=== PATIENT | female | born 1975 | race Hispanic/Latino ===

== ENCOUNTER 2023-12-25 10:59 | Outpatient (CLI) | payer BC | END 2023-12-25 11:00 | disposition home or self-care (01) | LOC: CSHMRI 10:59 | PROVIDERS: ATTEND Family Medicine | DX: M25.561 Pain in right knee (principal); M23.91 Unspecified internal derangement of right knee; M70.51 Other bursitis of knee, right knee ==

== ENCOUNTER 2023-12-26 10:31 | Emergency (ER) | payer BC ==
[2023-12-26] MEDS ORDERED: Ketorolac Tromethamine 30 MG (1 mL) VIAL ONE (11:44)
[2023-12-26] MEDS ORDERED: Ondansetron PF 4 MG/2 ML Vial ONE (11:51)
[2023-12-26 11:53] LABS: #Basophils 0.02 10x3/uL (0.0-0.2); #Eosinphils 0.12 10x3/uL (0.0-0.5); #Monocytes 0.37 10x3/uL (0.0-1.1); #Neutrophils 1.97 10x3/uL (1.5-8.4); %Basophils 0.5 % (0.0-2.0); %Eosinophils 2.7 % (0.0-6.0); %Lymphocytes 43.6 % (18.0-47.0); %Monocytes 8.4 % (0.0-10.0); %Neutrophils 44.8 % (40.0-75.0); Hematocrit 36.4 % (34.9-44.5); Hemoglobin 12.3 g/dL (12.0-15.5); Mean Corpuscular HGB CONC 33.8 g/dL (32.0-36.0); Mean Corpuscular Hemoglobin 27.5 pg (27.0-33.0); Mean Corpuscular Volume 81.3 fl (81.6-98.3); Mean Platelet Volume 10.6 fl (7.4-10.4); Platelet Count 192 10x3/uL (150-450); RBC Distribution Width 12.6 % (11.5-14.5); Red Blood Cell (RBC) Count 4.48 10x6/uL (3.90-5.03); White Blood Cell (WBC) Count 4.4 10x3/uL (3.5-10.5)
[2023-12-26 12:00] LABS: Bilirubin Neg (Negative); Blood, Urine Negative (Negative); Clarity Clear (Clear); Glucose, Urine (Dipstick) Normal (Negative); Ketone, Urine Negative (Negative); Leukocyte Negative (Negative); Nitrite Negative (Negative); Protein, Urine (Dipstick) Negative (Neg-Trace); Urobilinogen Normal mg/dL (Less than 2)
[2023-12-26] MEDS ORDERED: Iopamidol 300 61% 100 ML VIAL FS ONE (12:02)
[2023-12-26 12:09] LABS: ALT (SGPT) 15 U/L (8-55); AST (SGOT) 14 U/L (5-34); Albumin 3.5 g/dL (3.5-5.0); Alkaline Phosphatase 59 U/L (40-110); Anion Gap 12 mmol/L (10-20); BUN (Urea Nitrogen) 4 mg/dL (7.0-18.7); Bilirubin, Total 0.5 mg/dL (0.2-1.2); Calc. Creatinine Clearance 0 mL/min (70-130); Carbon Dioxide 21 mmol/L (22-29); Chloride 108 mmol/L (98-107); Estimated GFR 112; Globulin 3.2 g/dL (2.4-3.5); Glucose 92 mg/dL (70-105); Lipase 15 U/L (8-78); Potassium 3.5 mmol/L (3.5-5.1); Protein, Total 6.7 g/dL (6.0-8.3); Sodium 137 mmol/L (136-145)
[2023-12-26 12:17] LABS: CAUTI Indications for Culture Dysuria,urgency,freq; RBC/HPF None Seen HPF (0-3); Squamous Epithelial 0-3 HPF (0-3); WBC/HPF None Seen HPF (0-3)
[2023-12-26 12:18] LABS: Bacteria/HPF None Seen HPF (None Seen); Urine Culture Reflex No No
[2023-12-26] MEDS ORDERED: cefTRIAXone (ROCEPHIN) 2 GM VIAL ONE (12:40)
== END 2023-12-26 13:05 | disposition home or self-care (01) ==
LOC: CSHERS 10:31
DX: K57.31 Diverticulosis of large intestine without perforation or abscess with bleeding (principal); F17.210 Nicotine dependence, cigarettes, uncomplicated
CPT/HCPCS: 74177; 80053; 81001; 83690; 85025; 96374; 96375; J0696; J1885; J2405; Q9967

== ENCOUNTER 2024-03-16 16:00 | Outpatient (CLI) | payer BC | END 2024-03-16 16:01 | disposition home or self-care (01) | LOC: CSHSLEEP 16:00 | PROVIDERS: ATTEND Student in an Organized Health Care Education/Training Program | DX: G47.9 Sleep disorder, unspecified (principal); R53.83 Other fatigue; R51.9 Headache, unspecified; F32.A Depression, unspecified; F41.9 Anxiety disorder, unspecified; E66.9 Obesity, unspecified; Z68.38 Body mass index [BMI] 38.0-38.9, adult; G47.00 Insomnia, unspecified; G47.33 Obstructive sleep apnea (adult) (pediatric) | CPT/HCPCS: 95811 ==